=== PATIENT | female | born 1975 | race Caucasian/White ===

== ENCOUNTER 2021-09-28 19:12 | Emergency (ER) | payer BC ==
[~2021-09-28] VITALS: Ht 160 cm; Wt 90.3 kg
[2021-09-28 19:20] VITALS: BP_SYST 112
--- NOTE | 2021-09-28 19:36 | NUR ---
Patient to ER bed 6 to gown for evaluation. Side rails up. Report given to Jose MAC(cinthia).
--- NOTE | 2021-09-28 19:40 | NUR ---
DR. Watkins present in room.
[2021-09-28] MEDS ORDERED: KETOROLAC TROMETHAMINE 60 MG/2 ML VIAL IM ONE (19:45)
[2021-09-28] MEDS ORDERED: HYDR-3917 PO (20:33)
[2021-09-28] MEDS ORDERED: IBUP-1969 PO (20:33)
[2021-09-28 20:45] VITALS: BP_SYST 125
--- NOTE | 2021-09-28 20:45 | NUR ---
Patient given written and verbal discharge instructions and verbalizes understanding. ER MD discussed with patient the results and treatment provided. Patient in stable condition. ID arm band removed. Rx of norco 5-325mg and ibuprofen given. Patient educated on pain management and to follow up with PMD. Opportunity for questions provided and answered. Medication side effect fact sheet provided.
== END 2021-09-28 20:45 | disposition home or self-care (01) ==
LOC: SED 19:12
DX: M16.12 Unilateral primary osteoarthritis, left hip (principal); Z88.0 Allergy status to penicillin; Z88.1 Allergy status to other antibiotic agents; Z79.899 Other long term (current) drug therapy
CPT/HCPCS: 73521; 96372; 99283; J1885

== ENCOUNTER 2021-12-27 14:34 | Emergency (ER) | payer BC ==
[~2021-12-27] VITALS: Ht 157.5 cm; Wt 85.7 kg
[~2021-12-27 14:34] MED LIST: HYDR-3917 PO; IBUP-1969 PO
[2021-12-27 15:11] VITALS: BP_SYST 124
[2021-12-27] MEDS ORDERED: KETOROLAC TROMETHAMINE 30 MG VIAL IM ONE (15:30)
[2021-12-27] MEDS ORDERED: IBUP-1969 PO (15:53)
[2021-12-27 16:32] VITALS: BP_SYST 124
== END 2021-12-27 16:36 | disposition home or self-care (01) ==
LOC: SED 14:34
DX: B34.9 Viral infection, unspecified (principal); Z88.0 Allergy status to penicillin; Z88.1 Allergy status to other antibiotic agents; Z79.899 Other long term (current) drug therapy; Z20.822 Contact with and (suspected) exposure to COVID-19
CPT/HCPCS: 99283; 87426; 96372; 87804 ×2; U0003; J1885; C9803; 36415

== ENCOUNTER 2022-01-04 15:06 | Emergency (ER) | payer BC ==
[~2022-01-04] VITALS: Ht 157.5 cm; Wt 90.3 kg
[2022-01-04 15:06] VITALS: BP_SYST 141
--- NOTE | 2022-01-04 15:10 | NUR ---
Patient triaged and placed in waiting room. VSS and patient appears in no acute distress at this time. Accompanied by SELF, awaiting available bed, and MD notified of need for MSE.
--- NOTE | 2022-01-04 15:50 | NUR ---
PT STATES SHE IS COVID + AND NOW WITH BODY ACHES, SORE THROAT, COUGH, RIB/BACK PAIN, STATES SHE IS JUST MISERABLE. SPEAKING FULL SENTENCES.
--- NOTE | 2022-01-04 17:57 | NUR ---
DR KISER OUT TO TRIAGE TENT FOR EVALUATION
[2022-01-04] MEDS ORDERED: LOPE2CAP PO (18:08)
[2022-01-04] MEDS ORDERED: IBUP-1969 PO (18:08)
[2022-01-04] MEDS ORDERED: NEU300 PO (18:08)
[2022-01-04] MEDS ORDERED: [UNRECOGNIZED DRUG - CODE] PO (18:08)
[2022-01-04] MEDS ORDERED: KETOROLAC TROMETHAMINE 60 MG/2 ML VIAL IM ONE (18:15)
[2022-01-04] MEDS ORDERED: ACETAMINOPHEN 500 MG TABLET ONE (18:17)
--- NOTE | 2022-01-04 18:21 | NUR ---
PT MEDICATED ORDERED
--- NOTE | 2022-01-04 18:51 | NUR ---
Patient given written and verbal discharge instructions and verbalizes understanding. ER MD discussed with patient the results and treatment provided. Patient in stable condition. ID arm band removed. Rx of IBUPROFEN, IMODIUM, GABAPENTIN, SEVERE COLD AND FLU CAPLET given. Patient educated on pain management and to follow up with PMD. Pain Scale 0/10. Opportunity for questions provided and answered. Medication side effect fact sheet provided.
== END 2022-01-04 18:51 | disposition home or self-care (01) ==
LOC: SED 15:06
DX: U07.1 COVID-19 (principal); R05.9 Cough, unspecified; R19.7 Diarrhea, unspecified; R11.0 Nausea; Z88.0 Allergy status to penicillin; Z88.1 Allergy status to other antibiotic agents; Z79.899 Other long term (current) drug therapy
CPT/HCPCS: 99283; 96372; J1885

== ENCOUNTER 2022-01-25 18:22 | Emergency (ER) | payer BC ==
[~2022-01-25] VITALS: Ht 157.5 cm; Wt 90.3 kg
[2022-01-25 18:22] VITALS: BP_SYST 156
[~2022-01-25 18:22] MED LIST changes: +LOPE2CAP PO; +NEU300 PO; +[UNRECOGNIZED DRUG - CODE] PO
--- NOTE | 2022-01-25 18:22 | NUR ---
Patient to ER bed 02 to gown for evaluation. Side rails up. Report given to BUBBA KNIGHT
--- NOTE | 2022-01-25 18:48 | NUR ---
ER DR. CRAWLEY AT THE BEDSIDE EXAMINING PT
[2022-01-25] MEDS ORDERED: KETOROLAC TROMETHAMINE 60 MG/2 ML VIAL IM ONE (19:00)
--- NOTE | 2022-01-25 19:08 | NUR ---
CARE ENDORESED TO ANGEL RN. PT VSS. NAD NOTED. AWAITING XRAY RESULTS. END OF CARE.
[2022-01-25] MEDS ORDERED: NAPR-690 PO (19:52)
[2022-01-25 20:00] VITALS: BP_SYST 156
--- NOTE | 2022-01-25 20:02 | NUR ---
Patient given written and verbal discharge instructions and verbalizes understanding. ER MD DR CRAWLEY discussed with patient the results and treatment provided. Patient in stable condition. ID arm band removed. Rx of NAPROXEN given. Patient educated on pain management and to follow up with PMD. Pain Scale 1/10. Opportunity for questions provided and answered. Medication side effect fact sheet provided.
== END 2022-01-25 20:00 | disposition home or self-care (01) ==
LOC: SED 18:22
DX: M67.834 Other specified disorders of tendon, left wrist (principal); M25.532 Pain in left wrist; M79.632 Pain in left forearm; Z88.0 Allergy status to penicillin; Z88.1 Allergy status to other antibiotic agents; Z79.899 Other long term (current) drug therapy
CPT/HCPCS: 99283; 73100; 96372; J1885

== ENCOUNTER 2022-09-01 13:20 | Emergency (ER) | payer BC ==
[~2022-09-01] VITALS: Ht 160 cm; Wt 90.7 kg
[~2022-09-01 13:20] MED LIST changes: +NAPR-690 PO
[2022-09-01 13:23] VITALS: BP_SYST 161
[2022-09-01] MEDS ORDERED: PROM5SYR PO ×2 (15:50→22:53)
[2022-09-01] MEDS ORDERED: ALBMDI INH (15:50)
[2022-09-01] MEDS ORDERED: PRED10TA PO (15:50)
[2022-09-01] MEDS ORDERED: PSEU120T57 PO (15:50)
[2022-09-01] MEDS ORDERED: BENZ100C92 PO (15:53)
[2022-09-01 16:40] VITALS: BP_SYST 161
== END 2022-09-01 16:39 | disposition home or self-care (01) ==
LOC: SED 13:20
DX: J20.9 Acute bronchitis, unspecified (principal); R09.82 Postnasal drip; R05.9 Cough, unspecified; R51.9 Headache, unspecified; R50.9 Fever, unspecified; Z88.0 Allergy status to penicillin; Z88.1 Allergy status to other antibiotic agents; Z79.899 Other long term (current) drug therapy; Z20.822 Contact with and (suspected) exposure to COVID-19
CPT/HCPCS: 36415; 71045; 99284

== ENCOUNTER 2022-12-13 20:49 | Emergency (ER) | payer BC ==
[~2022-12-13] VITALS: Ht 160 cm; Wt 99.8 kg
[~2022-12-13 20:49] MED LIST changes: +ALBMDI INH; +BENZ100C92 PO; +PRED10TA PO; +PROM5SYR PO; +PSEU120T57 PO
[2022-12-13 20:50] VITALS: BP_SYST 159; PULSE 89; RESP 19; TEMP 97.5; O2SAT 98
[2022-12-13] MEDS ORDERED: IBUPROFEN 800 MG TABLET PO ONE (21:15)
[2022-12-13] MEDS ORDERED: TETRACAINE HCL/PF 0.5% OPHTHALMIC DROPS 4 ML OP ONE (21:15)
[2022-12-13] MEDS ORDERED: HYDROcodone/ACETAMIN 10-325 MG TAB PO ONE (21:15)
[2022-12-13] MEDS ORDERED: DIPHENHYDRAMINE HCL 25 MG CAPSULE PO ONE (22:00)
[2022-12-13] MEDS ORDERED: DIPH25CA83 PO (22:27)
[2022-12-13] MEDS ORDERED: IBUP-1971 PO (22:27)
[2022-12-13] MEDS ORDERED: PRED20TA PO (22:27)
[2022-12-13 22:37] VITALS: BP_SYST 138; PULSE 80; RESP 18; TEMP 97.8; O2SAT 99
== END 2022-12-13 22:36 | disposition home or self-care (01) ==
LOC: SED 20:49
DX: H10.13 Acute atopic conjunctivitis, bilateral (principal); H57.13 Ocular pain, bilateral; Z88.0 Allergy status to penicillin; Z88.1 Allergy status to other antibiotic agents; Z79.899 Other long term (current) drug therapy
CPT/HCPCS: 99284; Q0163